=== PATIENT | female | born 2005 | race Caucasian/White ===

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

== ENCOUNTER 2025-11-01 09:46 | Emergency (ER) | payer OTHER, SELFPAY ==
--- OUTSIDE RECORDS SUMMARY | 2025-11-01 09:49 | XMS_ITS | Clinical Summary ---
Author Organization [facility] Address [address] [place] [address] Care Team Providers Care Lute Packer Or Applier Name Role Phone Tavo Amato MD Primary Care Provider [phone] Source Comments [facility],non-owned Affiliates and Associated Physician Practices is amultiple site organization consisting of ambulatory clinics and hospital sitesin [place], [place], [place] and [place]. This disclosure is being madepursuant to the Care Everywhere program and may not contain all information available regarding this patient. Last updated 18.[facility] Allergies No known active allergies Medications * Be aware that medications may not be up to date on this document. Alwaysverify current medications with the patient. ondansetron, disintegrating, (Zofran ODT) 4 MG tablet Take 1 (one) tablet by mouth every 6 hours as needed for Nausea/Vomiti ng Allow tablet to dissolve on the tongue 9 tablet 01/02/2024 Active Social History Tobacco Use Types Packs/Day Years Used Date Smoking Tobacco: Never Smokeless Tobacco: Never AUDIT-C Answer Date Recorded Q1: How often do you have a drink containing alcohol? Never 01/02/2024 Q2: How many drinks containi ng alcohol do you have on a typical day when you are drinking? Patient does not drink Q3: How often do you have si x or more drinks on one occasion? Never 01/02/2024 Comments No Sex and Gender Information Value Date Recorded Sex Assigned at Not on file Legal Sex Female 8:32 AM CDT Gender Identity Not on file Sexual Orientation Not on file Last Filed Vital Signs Vital Sign Reading Time Taken Comments Blood Pressure 130/85 01/02/2024 11:15 AM ENVIRONMENTAL SERVICES SUPERVISOR Pulse 89 01/02/2024 10:35 AM ENVIRONMENTAL SERVICES SUPERVISOR Temperature 37 C (98.6 F) 01/02/2024 10:35 AM ENVIRONMENTAL SERVICES SUPERVISOR Respiratory Rate 18 01/02/2024 10:3 5 AM ENVIRONMENTAL SERVICES SUPERVISOR Oxygen Saturation 97% 01/02/2024 11: 30 AM ENVIRONMENTAL SERVICES SUPERVISOR Inhaled Oxygen Concentration - - Weight 100.8 kg (222 lb 3.2 oz) 024 10:59 AM ENVIRONMENTAL SERVICES SUPERVISOR Height 168.9 cm (5' 6.5) 01/02/2024 10 :47 AM ENVIRONMENTAL SERVICES SUPERVISOR Body Mass Index 35.33 01/02/2024 10:47 AM ENVIRONMENTAL SERVICES SUPERVISOR Plan of Treatment Health Maintenance Due Date Last Done Comments HIV SCREENING 02/01/2020 HPV VACCINE (1 - 3-dose series) 02/01/2020 CHLAMYDIA/GONORRHEA SCREENING 2021 MENINGOCOCCAL (Group B) VACCINE SHARED DECISION-MAKING (1 of 2 - Standard) 2021 HEPATITIS C SCREENING 01/27/2023 DTAP/TDAP/TD VACCINES (1 - Tdap) 02/01/2024 HEPATITIS B VACCINE (1 of 3 - 19+ 3-dose series) 02/01/2024 DEPRESSION SCREENING 11/09/2024 COVID-19 VACCINE (1 - 2024-2 6 season) 2025 INFLUENZA VACCINE (#1) 2025 1, 09/25/2010 ZOSTER VACCINE (1 of 2) 2055 HIB VACCINE Aged Out No longer eligi ble based on patient's age to complete this topic MENINGOCOCCAL GROUPS A/C/Y/W VACCINE Aged Out No longer eligible b ased on patient's age to complete this topic PNEUMOCOCCAL VACCINE Aged Out No long er eligible based on patient's age to complete this topic Insurance [facility] ANTHEM ANTHEM Care Teams Lute Packer Or Applier Relationship Specialty Start Date End Date Tavo Amato MD [address] [place] [address] PCP - General Family Medicine 01/01/24
--- OUTSIDE RECORDS SUMMARY | 2025-11-01 09:49 | XMS_ITS | Clinical Summary ---
Author Organization [facility] Address [address] [place] [address] Care Team Providers Care Commissioned Security Officer Name Role Phone Tavo Amato MD Primary Care Provider + [phone] Allergies No known active allergies Medications busPIRone (BUSPAR) 10 mg tablet Take 1 tablet (10 mg total) by mouth 2 (two) times a day 10/13/2024 Active Lo Loestrin Fe 1 mg-10 mcg (24)/10 mcg (2) tablet per tablet Take 1 tablet by mouth daily 12/08/2024 Active FLUoxetine (PROzac) 20 mg capsule Take 1 capsule (20 mg total) by mouth daily 01/18/2025 Active Active Problems Problem Noted Date Diagnosed Date 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 Astigmatism 06/30/2014 Social History Tobacco Use Types Packs/Day Years Used Date Smoking Tobacco: Never Comments No Sex and Gender Information Value Date Recorded Sex Assigned at Not on file 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 Gender Identity Not on file Sexual Orientation Not on file Last Filed Vital Signs Vital Sign Reading Time Taken Comments Blood Pressure 118/70 01/30/2025 12:48 PM CDT Pulse 81 01/30/2025 12:48 PM CDT Temperature 36.2 C (97.1 F) 01/30/2025 12:48 PM CDT Respiratory Rate 18 01/30/2025 12:48 PM CDT Oxygen Saturation 99% 01/30/2025 12:48 PM CDT Inhaled Oxygen Concentration - - Weight 84.8 kg (187 lb) 01/30/2025 12:48 PM CDT Height 170.2 cm (5' 7) 01/30/2025 12:48 PM CDT Body Mass Index 29.29 01/30/2025 12:48 PM CDT Plan of Treatment Health Maintenance Due Date Last Done Comments Depression Screening 2005 Hepatitis C Screening 2005 DTaP/Tdap/Td Vaccine (1 - Tdap) 02/01/2016 Varicella Vaccines (1 of 2 - 13+ 2-dose series) 2018 HPV Vaccines (1 - 3-dose series) 02/01/2020 Meningococcal B Vaccine (1 o f 2 - Standard) 2021 Hepatitis B Screening 2023 Regular Well Visit/Exam 18-64 2023 Influenza Vaccine (#1) 2025 , 09/25/2010 Meningococcal Vaccine Completed 08/20/2022 Pneumococcal vaccine <65 Aged Out No longer eligible based on patient's age to complete this topic Insurance [facility] BLUE ACC CHOICE OOS Care Teams Commissioned Security Officer Relationship Specialty Start Date End Date Tavo Amato MD PCP - General Family Medicine 01/23/23
[2025-11-01 09:52] VITALS: BP 152/82; PULSE 87; RESP 20; TEMP 36.5; O2SAT 100
--- NOTE | 2025-11-01 10:23 | ED.BACK ---
HPI - Back Pain/Injury General Chief Complaint: Back Pain/Injury Stated Complaint: middle back pain Time Seen by Provider: 11/01/25 10:24 Source: patient, RN notes reviewed and old records reviewed Mode of arrival: ambulatory Limitations: no limitations History of Present Illness HPI Narrative: 20 year old female who presents to 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 Patient reports that she has been taking Tylenol and also Ibuprofen and using Lidocaine patch to her back without pain relief. Patient reports that she has not had any tingling or numbness to her leg, reports no feeling of saddle paraesthesia or any difficulty with bowel or bladder function. MD elicited complaint: back pain and back injury Onset (ago): day(s) (2 days) Pain scale (0-10): 8 Similar Symptoms Previously: No Quality: sharp and aching Location: lumbar spine Exacerbating factors: movement and other (changing positions) Treatments prior to arrival: NSAIDS, acetaminophen and other (Lidocaine patch) Work related injury: Yes Related Data Allergies Allergy/AdvReac Type Severity Reaction Status Date / Time No Known Allergies Allergy Unknown Verified 11/01/25 09:56 Review of Systems Review of Systems: CONSTITUTIONAL: Denies fever, chills, or sweats. EYES: Denies visual changes, redness, or discharge. ENT: Denies rhinorrhea, congestion, sore throat, or otalgia. CARDIOVASCULAR: Denies chest pain, palpitations, or edema. RESPIRATORY: Denies cough or dyspnea. GASTROINTESTINAL: Denies abdominal pain, nausea, vomiting, or diarrhea. GENITOURINARY: Denies dysuria or hematuria. SKIN: Denies rash or itching. MUSCULOSKELETAL: Reports lumbar back pain especially to right side of back with some pain to buttock no radiation down legs verbalized.,, or myalgia. NEUROLOGIC: Denies headache, numbness, or weakness. PSYCHIATRIC: Denies anxiety or depression. All systems reviewed & are unremarkable except as noted in HPI and below PMFSH Past Medical History Medical History Screening for thyroid disorder Binge eating disorder Screening for diabetes mellitus Sinusitis, acute OME (otitis media with effusion) Vaping nicotine dependence, tobacco product Wheezing Encounter for surveillance of other contraceptives Fatty liver COVID-19 Moderate left ankle sprain Contraception management Anxiety Surgical History Surgical History H/O gynecological procedure nexplanon insertion 06/30/23 Nexplanon removal 06/01 Family History Family History Father Diabetes mellitus Hypertension Mother Anxiety Sibling No problems noted. Other Arthritis Asthma Depression High cholesterol Multiple myeloma Social History Social History Smoking status: Current every day smoker (vaping daily) Second hand tobacco smoke exposure: No Alcohol intake: never Substance use: never Substance use type: marijuana Lack of Transportation: No Lack of Food: Never True Current Housing: I Have Housing Concerned About Future Housing: No Difficulty Paying Gas/Electric Bills: No Difficulty Paying for Meds: No Currently Unemployed: No Education: High School Diploma/GED Difficulty w/ Childcare or Family Care: No Living arrangements: with family Occupation/Education: occupation Additional occupation/education comments: [employer] Gender identity (if verbalized by the patient): Female Comments At time of signature, agree with nursing past medical, surgical, social and family history. There is no relevant family history pertinent to the presenting complaint Exam Narrative: GENERAL: Well-appearing, well-nourished, and in some acute distress related to back pain. HEAD: Normocephalic, atraumatic. EYES: PERRLA and EOMI. ENT: Nares clear, no rhinorrhea or epistaxis. Mucous membranes moist.TM's normal throat pink with no swelling or exudates NECK: Supple. no lymphadenopathy CHEST: Clear to auscultation. No respiratory distress. SAO2 100% on room air HEART: Regular rate and rhythm. No murmur heard. Normal peripheral pulses. ABDOMEN: Soft, nontender, nondistended, normal active bowel sounds. EXTREMITIES: Normal range of motion. No edema. Positive for lumbar back pain especially to right side with some radiation to right buttocks, denies any tingling or numbness to her legs or any saddle paraesthesia denies any bowel of bladder dysfunction. Pain is increased with movement and position changes, spasms reported to lower back, gait slow and cautious. SKIN: Warm, dry, no rash. NEURO: No focal deficits. Alert and oriented x3. Course Course Level of Care: Express Care Visit Vital Signs Vital signs: Vital Signs Temperature 36.5 C 11/01/25 09:52 Pulse Rate 87 11/01/25 09:52 Respiratory Rate 20 11/01/25 09:52 Blood Pressure 152/82 H 11/01/25 09:52 Pulse Oximetry 100 11/01/25 09:52 Oxygen Delivery Room Air 11/01/25 09:52 Temperature 36.5 C 11/01/25 09:52 Pulse Rate 87 11/01/25 09:52 Respiratory Rate 20 11/01/25 09:52 Blood Pressure 152/82 H 11/01/25 09:52 Pulse Oximetry 100 11/01/25 09:52 Oxygen Delivery Room Air 11/01/25 09:52 reviewed MDM MDM Narrative Medical decision making narrative: Patient with acute lower back pain after 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 Patient has not obtained pain decrease with oral Tylenol and Ibuprofen and use of Lidocaine patch.Will treat patient with some Prednisone RX and muscle relaxers, she did not feel she needed x-ray today, no paraesthesia or difficulty with bowel or bladder function. Patient agrees with plan of care. Anticipatory guidance and reasons to seek care in ED reviewed with understanding voiced. Differential Diagnosis Differential Diagnosis: Differential diagnostic considerations for back pain?include?herniated disc, sciatica, abscess, strain/sprain, discitis, myelitis, fracture, hematoma, cauda equina, osteomyelitis, metastatic and/or primary malignancy, renal colic, pyelonephritis, AAA.? Critical Care Time Critical Care Time Critical Care Time: No Discharge Plan Discharge Clinical Impression: Acute lumbar back pain Qualifiers: Back pain laterality: right Sciatica presence: without sciatica Qualified Code(s): M54.50 - Low back pain, unspecified Patient Disposition: Home Condition: Stable Instructions: Antibiotic Form, Acute Low Back Pain (ED) Additional Instructions: Ice and heat to the area for 20-30 minutes Gentle stretching exercises Gentle massage Caution with lifting, bending, stooping, twisting Avoid pushing, pulling take muscle relaxants as directed--caution drowsiness and no driving or alcohol Anti-inflammatory medicine as directed--take with food such as ibuprofen He may take the muscle relaxant and anti-inflammatory at the same time prednisone daily for the next 5 days Follow-up with your PCP if not improving in 5-7 days If your symptoms persist, change or worsen significantly before you can contact your personal physician then please, without delay, go to the emergency department for further evaluation. Follow-up with PCP in 7-10 days or sooner if needed Follow up with PCP soon in regards to your blood pressure which is elevated above threshold for referral. Blood pressure above 120/80 may indicate pre-hypertension. 152/82 Patient Language: Mongolian Prescriptions: New cyclobenzaprine 10 mg tablet 10 mg PO TID PRN (Reason: muscle spasm) Qty: 20 0RF Rx Instructions: may take up to 3 times daily, you cannot drive while taking or operate any machinery if you are working you must take only at bedtime prednisone 50 mg tablet 50 mg PO DAILY Qty: 5 0RF Rx Instructions: take with food No Action Lo Loestrin Fe 1 mg-10 mcg (24)/10 mcg (2) tablet 1 tablet PO DAILY Qty: 140 3RF buspirone 10 mg tablet 10 mg PO BID Qty: 60 3RF lisdexamfetamine [Vyvanse] 30 mg capsule 30 mg PO DAILY Qty: 30 0RF Follow-up/Referrals: Montse Barahona APRN, LAST REPAIRER [Primary Care Provider, [facility]] Time of Disposition: 11:09 Quality Tre Coma Scale Eyes: Open Verbal: Oriented and Alert Motor: Follows Commands [place] Coma Total Score: 15
== END 2025-11-01 11:15 | disposition home or self-care (01) ==
PROVIDERS: Emergency Provider Registered Nurse; PCP Nurse Practitioner Family
DX: M54.50 Low back pain, unspecified (principal); F17.290 Nicotine dependence, other tobacco product, uncomplicated; K76.0 Fatty (change of) liver, not elsewhere classified; F41.9 Anxiety disorder, unspecified; Z86.16 Personal history of COVID-19
CPT/HCPCS: 99213; G0463